=== PATIENT | female | born 1955 | race Caucasian/White ===

== ENCOUNTER 2016-05-31 11:57 | Outpatient (CLI) | payer MEDICAID | END 2016-05-31 11:58 | disposition home or self-care (01) | DX: M25.531 Pain in right wrist (principal); M19.031 Primary osteoarthritis, right wrist ==

== ENCOUNTER 2016-09-30 10:23 | Outpatient (CLI) | payer MEDICAID | END 2016-09-30 10:24 | disposition home or self-care (01) | DX: I10 Essential (primary) hypertension (principal); F32.9 Major depressive disorder, single episode, unspecified ==

== ENCOUNTER 2016-10-16 10:55 | Outpatient (CLI) | payer MEDICAID ==
--- NOTE | 2016-10-17 08:06 | MRI Report ---
EXAM: RIGHT WRIST MRI WITHOUT CONTRAST EXAM DATE: 10/16/2016 11:40 AM. CLINICAL HISTORY: Right dorsal wrist pain in April 2016. Pain radiating up and down the forearm. COMPARISON: None. TECHNIQUE: Multiplanar, multisequence T1-weighted and fluid-sensitive sequences of the wrist without contrast. Other: None. FINDINGS: Bones: Moderate osteophyte formation and some periarticular marrow edema and cyst formation is in the first carpometacarpal joint. There is moderate joint space narrowing and periarticular marrow edema in the triscaphe joint. The lunate has some nonspecific edema within the volar portion. There is some nonspecific edema within the capitate as well. No fractures. Cartilage: Moderate cartilage loss in the first carpometacarpal joint and severe cartilage loss is in the triscaphe joint. The triangular fibrocartilage complex is unremarkable. Ligaments: The scapholunate and lunotriquetral ligaments are intact. The visualized other intrinsic, extrinsic and collateral ligaments are unremarkable. Tendons: The extensor carpi ulnaris tendon has a longitudinal split tear near the ulnar styloid (seri es 501, image 17). Fluid is in the first extensor compartment. The abductor pollicis longus tendon is severely thickened with multifocal longitudinal tearing. The other visualized flexor and extensor te ndons are unremarkable. Musculature: No edema or fatty atrophy. Other: The contents of the carpal tunnel, including the median nerve, are unremarkable. Guyon' s silvino l is unremarkable. No ganglion cysts. A mild effusion is in the distal radial ulnar joint. The subcut aneous tissues are unremarkable. IMPRESSION: 1. 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 2. Longitudinal split tear of the extensor carpi ulnaris tendon. 3. DeQuervain's tenosynovitis with severe tendinosis and tearing of the abductor pollicis longus tend on. [facility] MUSCULOSKELETAL RADIOLOGY SECTION Referring Provider Line: [phone] SITE ID: [id number]
== END 2016-10-16 10:56 | disposition home or self-care (01) ==
LOC: DI 10:55
PROVIDERS: ATTEND Orthopaedic Surgery
DX: M19.031 Primary osteoarthritis, right wrist (principal); S66.911A Strain of unspecified muscle, fascia and tendon at wrist and hand level, right hand, initial encounter; S56.311A Strain of extensor or abductor muscles, fascia and tendons of right thumb at forearm level, initial encounter; M65.4 Radial styloid tenosynovitis [de Quervain]

== ENCOUNTER 2016-12-24 10:31 | Day surgery (SDC) | payer MEDICAID ==
[2016-12-24] MEDS ORDERED: LACTATED RINGERS 1,000 ML IV ONE (11:10)
[2016-12-24] MEDS ORDERED: fentaNYL 100 MCG/2 ML VIAL IVP ONE (11:57)
[2016-12-24] MEDS ORDERED: MIDAZOLAM 2 MG/2 ML VIAL IVP ONE (11:57)
[2016-12-24] MEDS ORDERED: ONDANSETRON 4 MG/2 ML VIAL ONE (12:37)
[2016-12-24 13:28] VITALS: BP 132/77
== END 2016-12-24 10:32 | disposition home or self-care (01) ==
LOC: SDS 10:31
PROVIDERS: ATTEND Surgery
PROC: 0DJD8ZZ Inspection of Lower Intestinal Tract, Via Natural or Artificial Opening Endoscopic (ICD-10-PCS; principal; 2016-12-24 11:30)
DX: Z86.010 Personal history of colon polyps (principal); K57.30 Diverticulosis of large intestine without perforation or abscess without bleeding; I10 Essential (primary) hypertension; F41.9 Anxiety disorder, unspecified; K21.9 Gastro-esophageal reflux disease without esophagitis; Z80.3 Family history of malignant neoplasm of breast
CPT/HCPCS: 45378; J7120

== ENCOUNTER 2017-02-18 09:44 | Outpatient (CLI) | payer MEDICAID ==
--- NOTE | 2017-02-19 17:03 | Mammography Report ---
DIGITAL SCREENING MAMMOGRAM: 02/18/2017 CLINICAL INDICATION: A 61-year-old, for screening. COMPARISON: 07/2015, 05/2013, 01/2012, 12/2010, 10/2009. TECHNIQUE: Routine CC and MLO projections were obtained of the breasts. FINDINGS: The breasts demonstrate heterogeneously dense fibroglandular parenchyma bilaterally. In th e right lower inner anterior breast, there is a possible obscured nodule. Further evaluation with spo t compression views and possible ultrasound is recommended. No mammographically suspicious findings a re appreciated in the left breast. IMPRESSION: INCOMPLETE EXAMINATION. RECOMMENDATION: ADDITIONAL EVALUATION OF THE RIGHT BREAST ABOVE. BIRADS CATEGORY 0-INCOMPLETE. STANDARD QUALIFYING STATEMENTS 1. This examination was reviewed with the aid of Computer-Aided Detection (CAD). 2. A negative or benign imaging report should not delay biopsy if clinically suspicious findings are present. Consider surgical consultation if warranted. More than 5% of cancers are not identified by i maging. 3. Dense breasts may obscure an underlying neoplasm. JOB #: [id number] EXT JOB #:[id number]
== END 2017-02-18 09:45 | disposition home or self-care (01) ==
LOC: DI 09:44
PROVIDERS: ATTEND Nurse Practitioner Family
DX: Z12.31 Encounter for screening mammogram for malignant neoplasm of breast (principal); R92.8 Other abnormal and inconclusive findings on diagnostic imaging of breast
CPT/HCPCS: 77067

== ENCOUNTER 2017-02-25 12:59 | Outpatient (CLI) | payer MEDICAID ==
--- NOTE | 2017-02-25 17:42 | Mammography Report ---
DIGITAL DIAGNOSTIC RIGHT MAMMOGRAM: 02/25/2017 CLINICAL INDICATION: Possible nodule on screening. COMPARISON: 02/18/2017, 07/31/2015, 06/16/2013, 02/18/2012, 01/24/2011, 01/17/2011, 11/14/2009. TECHNIQUE: Right true lateral and spot compression views. FINDINGS: The right breast again demonstrates heterogeneously dense fibroglandular parenchyma. The density in question in the right retroareolar breast dissipates on additional compression. No underl vicky mass lesion or architectural distortion is identified. IMPRESSION: NEGATIVE EXAMINATION. RECOMMENDATION: Routine annual screening unless otherwise clinically indicated. BI-RADS category 1, negative. STANDARD QUALIFYING STATEMENTS 1. This examination was reviewed with the aid of Computer-Aided Detection (CAD). 2. A negative or benign imaging report should not delay biopsy if clinically suspicious findings are present. Consider surgical consultation if warranted. More than 5% of cancers are not identified by i maging. 3. Dense breasts may obscure an underlying neoplasm. JOB #: [id number] EXT JOB #:[id number]
== END 2017-02-25 13:00 | disposition home or self-care (01) ==
LOC: DI 12:59
PROVIDERS: ATTEND Family Medicine
DX: R92.8 Other abnormal and inconclusive findings on diagnostic imaging of breast (principal)

== ENCOUNTER 2017-03-18 07:23 | Day surgery (SDC) | payer MEDICAID ==
[2017-03-18] MEDS ORDERED: ceFAZolin 2 GM/50 ML 2 GM/50 ML BAG IV ONE (07:35)
[2017-03-18] MEDS ORDERED: LACTATED RINGERS 1,000 ML IV ONE (07:53)
[2017-03-18] MEDS ORDERED: BUPIVACAINE 0.25% PF 30 ML VIAL SUBQ ONE ×2 (08:28)
[2017-03-18] MEDS ORDERED: LIDOCAINE 1%-EPI 1:100000 20 ML MDV SUBQ ONE ×2 (08:28)
[2017-03-18] MEDS ORDERED: MIDAZOLAM 2 MG/2 ML VIAL IVP ONE (08:35)
[2017-03-18] MEDS ORDERED: LIDOCAINE-MPF 2% 5 ML VIAL IM ONE (08:35)
[2017-03-18] MEDS ORDERED: PROPOFOL 200 MG/20 ML VIAL IVP ONE (08:35)
[2017-03-18] MEDS ORDERED: fentaNYL 100 MCG/2 ML VIAL IVP ONE (08:35)
[2017-03-18] MEDS ORDERED: HYDROcod/ACETAM 5/325 MG TABLET ONE (09:01)
[2017-03-18 09:19] VITALS: BP 148/85
--- NOTE | 2017-03-18 09:50 | OPERATIVE REPORT ---
DATE OF SURGERY: 03/18/2017 00:00:00 PREOPERATIVE DIAGNOSIS: Right de Quervain tenosynovitis. POSTOPERATIVE DIAGNOSIS: Right de Quervain tenosynovitis. NAME OF PROCEDURE: Surgical release of the right wrist first extensor compartment. SURGEON: Carla Barber MD. ANESTHESIA: Local and MAC. INDICATIONS FOR SURGERY: The patient is a 61-year-old female with chronic radial right wrist pain who has had conservative treatment with splinting and injections with minimal relief. She now is prepare d for first extensor release having failed nonoperative treatment. FINDINGS AT SURGERY: The patient's first extensor compartment showed multiple slips of tendon, none o f them in separate compartments. There was mild fluid accumulation, but no redness and no abnormality in the tendons themselves. DESCRIPTION OF OPERATIVE PROCEDURE: The patient was taken to the operating room, was given sedation a nesthetic, after which a surgical out and sterile prep and drape were accomplished. The patient's wri st was marked for a transverse incision in the Jackeline's lines transversely across the wrist. A 1.5 in ch incision was made through the skin only. The area had been infiltrated with 0.25% Marcaine with ep inephrine and 1% lidocaine. An Esmarch was used as tourniquet on the upper forearm. An incision was m sita. Dissection was spread down to the first extensor compartment, which was isolated and then surgic ally released. The tendons were each individually inspected and there was no abnormality in the tendo ns. The area was flushed and irrigated, and the closure was with 3-0 Vicryl subcutaneous and 3-0 Sac cryl with a running stitch in the skin. Steri-Strips were applied and a sterile dressing was applied with a thumb splint. The patient was taken to the recovery room in stable condition. ESTIMATED BLOOD LOSS: Minimal. COMPLICATIONS: None. SPONGE AND NEEDLE COUNTS: Correct. JOB #: [id number] EXT JOB #:[id number]
== END 2017-03-18 07:24 | disposition home or self-care (01) ==
LOC: SDS 07:23
PROVIDERS: ATTEND Orthopaedic Surgery
PROC: 0LN50ZZ Release Right Lower Arm and Wrist Tendon, Open Approach (ICD-10-PCS; principal; 2017-03-18 08:15)
DX: M65.4 Radial styloid tenosynovitis [de Quervain] (principal); I10 Essential (primary) hypertension; E78.5 Hyperlipidemia, unspecified; F32.9 Major depressive disorder, single episode, unspecified; F41.9 Anxiety disorder, unspecified
CPT/HCPCS: 25000; A9270; J0690; J7120

== ENCOUNTER 2018-04-09 09:13 | Outpatient (CLI) | payer MEDICAID ==
[2018-04-09 18:29] LABS: BASOPHILS # (AUTO) 0.1 10^3/uL (0.0-0.1); BASOPHILS % (AUTO) 0.8 %; EOSINOPHILS # (AUTO) 0.1 10^3/uL (0.0-0.7); EOSINOPHILS % (AUTO) 0.9 %; HGB - HEMOGLOBIN 14.7 g/dL (12.0-16.0); LYMPHOCYTES # (AUTO) 1.6 10^3/uL (1.5-3.5); LYMPHOCYTES % (AUTO) 21.9 %; MEAN CORPUSCULAR HEMOGLOBIN 29.4 pg (27.0-31.0); MEAN CORPUSCULAR VOLUME 92.1 fL (81.0-99.0); MEAN PLATELET VOLUME 9.5 fL (7.9-10.8); MONOCYTES # (AUTO) 0.4 10^3/uL (0.0-1.0); MONOCYTES % (AUTO) 5.9 %; NEUTROPHILS # (AUTO) 5.3 10^3/uL (1.5-6.6); NEUTROPHILS % (AUTO) 70.5 %; PLT - PLATELET COUNT 268 10^3/uL (130-450); RED BLOOD COUNT 5.01 10^6/uL (4.20-5.40); RED CELL DISTRIBUTION WIDTH 13.6 % (12.0-15.0); WHITE BLOOD COUNT 7.5 x10^3/uL (4.8-10.8)
[2018-04-09 19:00] LABS: ALBUMIN/GLOBULIN RATIO 1.4 (1.0-2.2); ALKALINE PHOSPHATASE 91 IU/L (42-121); ALT ALANINE AMINOTRANSFERASE 16 IU/L (10-60); AST ASPARTATE AMINOTRANSFERASE 17 IU/L (10-42); BILIRUBIN,TOTAL 0.9 mg/dL (0.2-1.0); BUN - BLOOD UREA NITROGEN 14 mg/dL (6-20); CALCIUM 8.7 mg/dL (8.5-10.3); CARBON DIOXIDE - CO2 25 mmol/L (21-32); CHLORIDE 106 mmol/L (101-111); CHOL/HDL RATIO 2.8 (<4.4); CHOLESTEROL 219 mg/dL; CREATININE 0.5 mg/dL (0.4-1.0); GFR - MDRD 126 (>89); GLUCOSE 98 mg/dL (70-100); HDL CHOLESTEROL 77 mg/dL; LDL CHOLESTEROL,CALCULATED 118 mg/dL; LDL/HDL RATIO 1.5 (<4.4); SODIUM 139 mmol/L (135-145); TOTAL PROTEIN 6.9 g/dL (6.7-8.2); VLDL CHOLESTEROL 24 mg/dL
== END 2018-04-09 09:14 | disposition home or self-care (01) ==
LOC: LAB.F 09:13
PROVIDERS: ATTEND Nurse Practitioner Family
DX: I10 Essential (primary) hypertension (principal); E78.5 Hyperlipidemia, unspecified; F32.9 Major depressive disorder, single episode, unspecified
CPT/HCPCS: 36415; 80053; 80061; 83721; 84443; 85025

== ENCOUNTER 2018-04-30 13:16 | Emergency (ER) | payer MEDICAID ==
[2018-04-30] MEDS ORDERED: ACETAMINOPHEN 1,000 MG/100 ML 100 ML IV STA (13:36)
[2018-04-30] MEDS ORDERED: SODIUM CHLORIDE 0.9% 1,000 ML IV ONE (13:37)
[2018-04-30 13:52] LABS: BASOPHILS % (AUTO) 0.4 %; EOSINOPHILS # (AUTO) 0.1 10^3/uL (0.0-0.7); EOSINOPHILS % (AUTO) 1.2 %; HGB - HEMOGLOBIN 15.7 g/dL (12.0-16.0); LYMPHOCYTES # (AUTO) 1.2 10^3/uL (1.5-3.5); LYMPHOCYTES % (AUTO) 14.5 %; MEAN CORPUSCULAR HEMOGLOBIN 30.1 pg (27.0-31.0); MEAN CORPUSCULAR HGB CONC 34.1 g/dL (32.0-36.0); MEAN CORPUSCULAR VOLUME 88.3 fL (81.0-99.0); MEAN PLATELET VOLUME 8.2 fL (7.9-10.8); MONOCYTES # (AUTO) 0.6 10^3/uL (0.0-1.0); MONOCYTES % (AUTO) 7.2 %; NEUTROPHILS # (AUTO) 6.1 10^3/uL (1.5-6.6); NEUTROPHILS % (AUTO) 76.7 %; PLT - PLATELET COUNT 272 10^3/uL (130-450); RED BLOOD COUNT 5.21 10^6/uL (4.20-5.40); RED CELL DISTRIBUTION WIDTH 13.3 % (12.0-15.0); WHITE BLOOD COUNT 7.9 x10^3/uL (4.8-10.8)
--- NOTE | 2018-04-30 13:52 | ED Physician Documentation ---
History of Present Illness - Stated complaint Stated Complaint: ABD PX/DIARRHEA - Chief complaint Chief Complaint: Abd Pain - Additonal information Additional information: hx from pt 62 female to ED with nausea diarrhea s blood and right abd pain X 1.5 days no travel no bad food no sick people contacts but has been caring for sick cows no blood in stool no fever Review of Systems Constitutional: denies: Fever, Chills Throat: denies: Sore throat Cardiac: denies: Chest pain / pressure Respiratory: denies: Dyspnea GI: reports: Abdominal Pain, Nausea, Diarrhea. denies: Bloody / black stool : denies: Now EGA Endocrine: denies: Easy bruising / bleeding Immunocompromised: denies: Immunocompromised PD PAST MEDICAL HISTORY - Past Medical History Past Medical History: Yes Cardiovascular: Hypertension, High cholesterol Respiratory: None Endocrine/Autoimmune: None GI: GERD : None HEENT: Chronic vision loss Psych: Depression, Anxiety, Panic attacks, Claustrophobia Musculoskeletal: Other Derm: None - Past Surgical History General: Colonoscopy HEENT: Tonsil/Adenoidectomy - Present Medications Home Medications: Ambulatory Orders Medication Instructions Recorded Confirmed Butalbital/Aspirin/Caffeine 1 tab ORAL Q4H PRN MDD 6 12/24/16 03/18/17 [Fiorinal 50-325-40 mg Capsule] raNITIdine [Zantac] 150 mg ORAL DAILY 12/24/16 03/18/17 hydrOXYzine HCl [Hydroxyzine HCl] 50 mg PO DAILY PM 03/13/17 03/18/17 hydrOXYzine HCl [Hydroxyzine HCl] 50 mg PO Q6HR PRN 03/13/17 03/13/17 Acyclovir 400 mg PO 04/30/18 04/30/18 Amox/Clav 875/125 [Augmentin] 1 each PO Q12H #14 tablet 04/30/18 Dicyclomine [Bentyl] 10 mg PO Q8H PRN #20 capsule 04/30/18 Lisinopril 10 mg 04/30/18 Ondansetron Odt [Zofran] 4 mg TL Q6H PRN #10 tablet 04/30/18 Saccharomyces Boulardii [Florastor] 500 mg PO BID #40 capsule 04/30/18 - Allergies Allergies/Adverse Reactions: Allergies Allergy/AdvReac Type Severity Reaction Status Date / Time citalopram hydrobromide * Allergy Severe Hallucinati Verified 04/30/18 13:21 [From Celexa] ons losartan Allergy Severe Dizziness Verified 04/30/18 13:21 sumatriptan Allergy Severe Dizziness Verified 04/30/18 13:21 venlafaxine Allergy Severe Dizziness Verified 04/30/18 13:21 bacitracin Allergy Intermediate Itching Verified 04/30/18 13:21 [From Neosporin (izp-csc-[id number])] bacitracin zinc * Allergy Intermediate Itching Verified 04/30/18 13:21 [From Neosporin ([id number]-dls-[id number])] erythromycin base Allergy Intermediate Itching Verified 04/30/18 13:21 neomycin sulfate * Allergy Intermediate Itching Verified 04/30/18 13:21 [From Neosporin ([id number]-[id number])] polymyxin B Allergy Intermediate Itching Verified 04/30/18 13:21 [From Neosporin ([id number]-ndg-[id number])] - Social History Does the pt smoke?: No Smoking Status: Never smoker Does the pt drink ETOH?: Yes Does the pt have substance abuse?: No - Immunizations Immunizations are current?: Yes PD ED PE NORMAL - Vitals Vital signs reviewed: Yes - Cardiac Cardiac: RRR - Respiratory Respiratory: No respiratory distress - Abdomen Abdomen: Soft, Other (TTP RLQ with some vol guarding, no hernia, no pulsatile mass) - Derm Derm: Normal color - Neuro Neuro: Alert and oriented X 3 Results - Vitals Vitals: Vital Signs - 24 hr 04/30/18 04/30/18 04/30/18 13:17 15:49 16:23 Temperature 36.2 C L Heart Rate 100 77 74 Respiratory 18 16 19 Rate Blood Pressure 155/105 H 133/82 H 131/69 H O2 Saturation 98 97 94 Oxygen O2 Source Room air - Labs Labs: Microbiology 04/30/18 14:00 Campylobacter Antigen Assay - Final Stool Laboratory Tests 04/30/18 04/30/18 04/30/18 13:42 13:42 15:00 WBC 7.9 RBC 5.21 Hgb 15.7 Hct 46.0 MCV 88.3 MCH 30.1 MCHC 34.1 RDW 13.3 Plt Count 272 MPV 8.2 Neut # (Auto) 6.1 Lymph # (Auto) 1.2 L [place] # (Auto) 0.6 Eos # (Auto) 0.1 Baso # (Auto) 0.0 Absolute Nucleated RBC 0.00 Nucleated RBC % 0.0 Sodium 138 Potassium 3.4 L Chloride 104 Carbon Dioxide 24 Anion Gap 10.0 BUN 15 Creatinine 0.7 Estimated GFR (MDRD) 85 L Glucose 119 H Calcium 8.6 Total Bilirubin 0.7 AST 24 ALT 18 Alkaline Phosphatase 111 Total Protein 7.1 Albumin 3.9 Globulin 3.2 Albumin/Globulin Ratio 1.2 Lipase 25 Urine Color YELLOW Urine Clarity CLEAR Urine pH 6.0 Ur Specific [place] <=1.005 Urine Protein NEGATIVE Urine Glucose (UA) NEGATIVE Urine Ketones NEGATIVE Urine Occult Blood SMALL H Urine Nitrite NEGATIVE Urine Bilirubin NEGATIVE Urine Urobilinogen 0.2 (NORMAL) Ur Leukocyte Esterase NEGATIVE Urine RBC 0-5 Urine WBC 0-3 Ur Squamous Epith Cells RARE Squamous Urine Bacteria None Seen Ur Microscopic Review INDICATED Urine Culture Comments NOT INDICATED - Rads (name of study) CT AP Radiology: See rad report (wall thickening ascending colon and transverse colon with pericolonic stranding and edema, not typical for diverticulitis, could be infectious or inflammatory, nl appendix, indeterm 2.8 cm L adrenal mass) PD MEDICAL DECISION MAKING - ED course ED course: acute illness CT shows colitis doubt ischemic given large section of colon involved, pain not out or proportion to exam, no afib doubt inflammatory bowel dz woudl first present at age 62 so likely infectious gave unasyn IVF and ofirmev and bentyl if able to tolerate PO fluids will dc on ab with close follow up Departure - Departure Disposition: 01 Home, Self Care Clinical Impression: Colitis Condition: Good Instructions: ED Gastroenteritis Bacterial Follow-Up: Mirela Pinedo ARNP [Primary Care Provider] - Prescriptions: Amox/Clav 875/125 [Augmentin] 1 each PO Q12H #14 tablet Dicyclomine [Bentyl] 10 mg PO Q8H PRN #20 capsule PRN Reason: Stomach cramps Ondansetron Odt [Zofran] 4 mg TL Q6H PRN #10 tablet PRN Reason: Nausea / Vomiting Saccharomyces Boulardii [Florastor] 500 mg PO BID #40 capsule Comments: The CT scan showed the inflamed colon. This is likely due to an infection I have prescribed an antibiotic called augmentin. You can take bentyl for the cramps and pain. A probiotic to help maintain normal healthy gut bacteria. And zofran as needed for vomiting Drink plenty of fluids to replace losses in the diarrhea Recommend clear liquid diet today and tomorrow then advance to rice toast bananas etc on Friday Follow up with your PMD for a recheck Friday Return to the ER of worse in any way The CT also showed a mass on your left adrenal gland - this would not be related to your right sided pain today but needs follow up and further evaluation with your PMD. This is likely a benign adenomas but tests should be run to be sure it s not a pheochromocytoma and sometimes biopsy is recommended I would also suggest getting a colonoscopy after the acute illness has resolved Forms: Activity restrictions Discharge Date/Time: 04/30/18 17:27
[2018-04-30 14:09] LABS: ALBUMIN 3.9 g/dL (3.2-5.5); ALBUMIN/GLOBULIN RATIO 1.2 (1.0-2.2); BILIRUBIN,TOTAL 0.7 mg/dL (0.2-1.0); CALCIUM 8.6 mg/dL (8.5-10.3); CREATININE 0.7 mg/dL (0.4-1.0); TOTAL PROTEIN 7.1 g/dL (6.7-8.2)
[2018-04-30] MEDS ORDERED: IOVERSOL 320 100 ML VIAL IVP ONE ×2 (14:24→14:33)
--- NOTE | 2018-04-30 14:46 | CT Report ---
Reason: rlq pain and diarrhea Procedure Date: 04/30/2018 Accession Number: [id number] / [id number] Procedure: CT - Abdomen/Pelvis W/ CPT Code: FULL RESULT: EXAM: CT ABDOMEN AND PELVIS EXAM DATE: 04/30/2018 02:35 PM. CLINICAL HISTORY: Rlq pain and diarrhea. COMPARISONS: None. TECHNIQUE: Routine helical CT imaging was performed through the abdomen and pelvis. IV contrast: OPTIRAY 320 90mL. Enteric contrast: No. Reconstructions: Coronal and sagittal. In accordance with CT protocol optimization, one or more of the following dose reduction techniques were utilized for this exam: automated exposure control, adjustment of mA and/or KV based on patient size, or use of iterative reconstructive technique. FINDINGS: Lung Bases: Unremarkable. Liver: Subcentimeter densities too small to characterize Gallbladder/Bile Ducts: Unremarkable. Spleen: Normal. Pancreas: Normal. Adrenal Glands: Right adrenal unremarkable. Left adrenal 2.8 cm indeterminate mass Kidneys: Normal. No masses or hydronephrosis. Peritoneal Cavity/Bowel: Wall thickening in portions of the ascending colon, most of the transverse colon. Pericolonic stranding. There are a few diverticula in the colon but most of the diverticula are in the sigmoid colon The appendix is well visualized and normal. Pelvic Organs: Normal. The bladder and visualized pelvic organs are within normal limits. Vasculature: No aneurysms or other significant abnormality. Bones: Bone islands in the acetabulum Other: None. IMPRESSION: 1. Wall thickening in portions of the ascending colon and most of the transverse colon with pericolonic stranding and edema. There are a few diverticula in this region but not typical appearance for diverticulitis. This could be infectious, inflammatory, inflammatory bowel disease. 2. Normal appendix. 3. Indeterminate left adrenal mass 2.8 cm RAD[facility]
[2018-04-30 15:11] LABS: BILIRUBIN,URINE NEGATIVE (NEGATIVE); GLUCOSE, URINE (UA) NEGATIVE (NEGATIVE); KETONES,URINE (UA) NEGATIVE (NEGATIVE); LEUKOCYTE ESTERASE, URINE NEGATIVE (NEGATIVE); NITRITE,URINE NEGATIVE (NEGATIVE); OCCULT BLOOD,URINE SMALL (NEGATIVE); PROTEIN,URINE NEGATIVE (NEGATIVE); UROBILINOGEN,URINE 0.2 (NORMAL) E.U./dL (NORMAL)
[2018-04-30 15:14] LABS: CLARITY,URINE CLEAR (CLEAR)
[2018-04-30 15:43] LABS: BACTERIA,URINE None Seen /HPF (None Seen); RBC,URINE 0-5 /HPF (0-5); SQUAMOUS EPITHELIAL CELL,UR RARE Squamous (<= Few)
[2018-04-30] MEDS ORDERED: DICYCLOMINE 10 MG CAPSULE PO STA (16:09)
[2018-04-30] MEDS ORDERED: AMPICILLIN/SULBACTAM 3 GM in SODIUM CHLORIDE 0.9% MINIBAG 100 ML IV STA (16:09)
[2018-04-30 16:24] VITALS: BP 131/69
== END 2018-04-30 17:27 | disposition home or self-care (01) ==
LOC: ED 13:16
DX: K52.9 Noninfective gastroenteritis and colitis, unspecified (principal); I10 Essential (primary) hypertension; E78.00 Pure hypercholesterolemia, unspecified
CPT/HCPCS: 36415; 74177; 80053; 81001; 83690; 85025; 87045; 87046; 96361; 96365; 96375; 99283; A9270; J0131; Q9967; 81003; 87086

== ENCOUNTER 2018-05-02 11:01 | Emergency (ER) | payer MEDICAID ==
[2018-05-02] MEDS ORDERED: ONDANSETRON 4 MG/2 ML VIAL IVP STA (12:15)
[2018-05-02] MEDS ORDERED: SODIUM CHLORIDE 0.9% 1,000 ML IV STA (12:15)
[2018-05-02 12:44] LABS: BASOPHILS % (AUTO) 0.4 %; EOSINOPHILS % (AUTO) 0.4 %; HGB - HEMOGLOBIN 16.7 g/dL (12.0-16.0); LYMPHOCYTES % (AUTO) 10.9 %; MEAN CORPUSCULAR HGB CONC 34.8 g/dL (32.0-36.0); MEAN CORPUSCULAR VOLUME 86.3 fL (81.0-99.0); MEAN PLATELET VOLUME 8.3 fL (7.9-10.8); MONOCYTES # (AUTO) 0.7 10^3/uL (0.0-1.0); MONOCYTES % (AUTO) 7.4 %; NEUTROPHILS # (AUTO) 7.6 10^3/uL (1.5-6.6); NEUTROPHILS % (AUTO) 80.9 %; PLT - PLATELET COUNT 252 10^3/uL (130-450); RED BLOOD COUNT 5.58 10^6/uL (4.20-5.40); RED CELL DISTRIBUTION WIDTH 13.2 % (12.0-15.0); WHITE BLOOD COUNT 9.4 x10^3/uL (4.8-10.8)
[2018-05-02 12:53] LABS: ALBUMIN 4.4 g/dL (3.2-5.5); ALBUMIN/GLOBULIN RATIO 1.3 (1.0-2.2); BILIRUBIN,TOTAL 0.8 mg/dL (0.2-1.0); CREATININE 1.6 mg/dL (0.4-1.0); TOTAL PROTEIN 7.9 g/dL (6.7-8.2)
[2018-05-02] MEDS ORDERED: SODIUM CHLORIDE 0.9% 1,000 ML IV ONE (13:10)
--- NOTE | 2018-05-02 13:13 | ED Physician Documentation ---
History of Present Illness - Stated complaint Stated Complaint: N/V/D - Chief complaint Chief Complaint: Abd Pain - History obtained from History obtained from: Patient, Friend - History of Present Illness Timing: How many days ago (several) Pain level max: 6 Pain level now: 2 - Additonal information Additional information: Patient is a 62-year-old female who was seen here recently her pain is nearly resolved but the diarrhea has increased and had vomiting this morning. Denies any recent travel. Is not been on any antibiotics other than the Augmentin. No fevers. Nothing makes the diarrhea better. The antibiotics seem to be making it worse. Her stool culture from 2 days ago is negative. C. difficile was not tested. Review of Systems Ten Systems: 10 systems reviewed and negative Constitutional: denies: Fever, Chills Ears: denies: Ear pain Nose: denies: Rhinorrhea / runny nose, Congestion Throat: denies: Sore throat Cardiac: denies: Chest pain / pressure Respiratory: denies: Cough GI: denies: Nausea, Vomiting, Diarrhea Skin: denies: Rash Musculoskeletal: denies: Neck pain, Back pain Neurologic: denies: Headache PD PAST MEDICAL HISTORY - Past Medical History Cardiovascular: Hypertension, High cholesterol Respiratory: None Endocrine/Autoimmune: None GI: GERD : None HEENT: Chronic vision loss Psych: Depression, Anxiety, Panic attacks, Claustrophobia Musculoskeletal: Other Derm: None - Past Surgical History General: Colonoscopy HEENT: Tonsil/Adenoidectomy - Present Medications Home Medications: Ambulatory Orders Medication Instructions Recorded Confirmed Butalbital/Aspirin/Caffeine 1 tab ORAL Q4H PRN MDD 6 12/24/16 03/18/17 [Fiorinal 50-325-40 mg Capsule] raNITIdine [Zantac] 150 mg ORAL DAILY 12/24/16 03/18/17 hydrOXYzine HCl [Hydroxyzine HCl] 50 mg PO DAILY PM 03/13/17 03/18/17 Acyclovir 400 mg PO 04/30/18 04/30/18 Amox/Clav 875/125 [Augmentin] 1 each PO Q12H #14 tablet 04/30/18 Dicyclomine [Bentyl] 10 mg PO Q8H PRN #20 capsule 04/30/18 Lisinopril 10 mg 04/30/18 Ondansetron Odt [Zofran] 4 mg TL Q6H PRN #10 tablet 04/30/18 Saccharomyces Boulardii [Florastor] 500 mg PO BID #40 capsule 04/30/18 Ondansetron Odt [Zofran] 4 mg TL Q6H PRN #10 tablet 05/02/18 Sulfamethox/Trimeth 800/160 1 each PO BID #14 tablet 05/02/18 [Bactrim Ds 800/160] - Allergies Allergies/Adverse Reactions: Allergies Allergy/AdvReac Type Severity Reaction Status Date / Time citalopram hydrobromide * Allergy Severe Hallucinati Verified 05/02/18 11:11 [From Celexa] ons losartan Allergy Severe Dizziness Verified 05/02/18 11:11 sumatriptan Allergy Severe Dizziness Verified 05/02/18 11:11 venlafaxine Allergy Severe Dizziness Verified 05/02/18 11:11 bacitracin Allergy Intermediate Itching Verified 05/02/18 11:11 [From Neosporin (gkk-zub-emxgo)] bacitracin zinc * Allergy Intermediate Itching Verified 05/02/18 11:11 [From Neosporin (bsu-pcz-runks)] erythromycin base Allergy Intermediate Itching Verified 05/02/18 11:11 neomycin sulfate * Allergy Intermediate Itching Verified 05/02/18 11:11 [From Neosporin (exx-prk-ljxro)] polymyxin B Allergy Intermediate Itching Verified 05/02/18 11:11 [From Neosporin (hxh-dbg-uczpi)] - Social History Does the pt smoke?: No Smoking Status: Never smoker Does the pt drink ETOH?: Yes Does the pt have substance abuse?: No - Immunizations Immunizations are current?: Yes PD ED PE NORMAL - Vitals Vital signs reviewed: Yes - General General: Alert and oriented X 3, No acute distress - HEENT HEENT: Moist mucous membranes - Neck Neck: Supple, no meningeal sign - Cardiac Cardiac: RRR, Strong equal pulses - Respiratory Respiratory: No respiratory distress, Clear bilaterally - Abdomen Abdomen: Soft, Non tender, Non distended - Derm Derm: Warm and dry, No rash - Extremities Extremities: No edema - Neuro Neuro: Alert and oriented X 3 - Psych Psych: Normal mood, Normal affect Results - Vitals Vitals: Vital Signs - 24 hr 05/02/18 05/02/18 05/02/18 11:07 14:34 15:26 Temperature 36.8 C 37.2 C 36.7 C Heart Rate 110 H 88 97 Respiratory 16 20 12 Rate Blood Pressure 104/76 111/74 116/87 H O2 Saturation 96 98 98 Oxygen O2 Source Room air - Labs Labs: Microbiology 05/02/18 13:20 Clostridium difficile (PCR) - Final Stool Laboratory Tests 05/02/18 05/02/18 05/02/18 12:28 12:28 13:18 WBC 9.4 RBC 5.58 H Hgb 16.7 H Hct 48.1 H MCV 86.3 MCH 30.0 MCHC 34.8 RDW 13.2 Plt Count 252 MPV 8.3 Neut # (Auto) 7.6 H Lymph # (Auto) 1.0 L [place] # (Auto) 0.7 Eos # (Auto) 0.0 Baso # (Auto) 0.0 Absolute Nucleated RBC 0.01 Nucleated RBC % 0.1 Sodium 130 L Potassium 3.1 L Chloride 96 L Carbon Dioxide 22 Anion Gap 12.0 BUN 15 Creatinine 1.6 H Estimated GFR (MDRD) 33 L Glucose 118 H Calcium 9.0 Total Bilirubin 0.8 AST 34 ALT 23 Alkaline Phosphatase 107 Total Protein 7.9 Albumin 4.4 Globulin 3.5 Albumin/Globulin Ratio 1.3 Lipase 26 Urine Color YELLOW Urine Clarity HAZY Urine pH 7.0 Ur Specific [place] <=1.005 Urine Protein 30 H Urine Glucose (UA) NEGATIVE Urine Ketones TRACE Urine Occult Blood MODERATE H Urine Nitrite NEGATIVE Urine Bilirubin NEGATIVE Urine Urobilinogen 0.2 (NORMAL) Ur Leukocyte Esterase NEGATIVE Urine RBC 6-10 H Urine WBC 4-5 Ur Squamous Epith Cells FEW Squamous Urine Bacteria Few Ur Microscopic Review INDICATED Urine Culture Comments NOT INDICATED PD MEDICAL DECISION MAKING - ED course Complexity details: reviewed old records, reviewed results, re-evaluated patient, considered differential, d/w patient ED course: 62 year old female with increasing diarrhea, but pain has resolved. She may be having side effects from Augmentin. will change antibiotics. Given IVF. C. diff testing is negative. She is well appearing, non toxic. Abd is soft, nt, nd on serial exam. tolerating PO without diff. Pt counseled regarding expected course and signs and symptoms for which I believe an urgent evaluation would be necessary. Pt with good understanding and agreement to plan. Departure - Departure Disposition: 01 Home, Self Care Clinical Impression: Colitis Condition: Good Instructions: ED Gastroenteritis Bacterial Follow-Up: Mirela Pinedo ARNP [Primary Care Provider] - Within 1 week Prescriptions: Ondansetron Odt [Zofran] 4 mg TL Q6H PRN #10 tablet PRN Reason: Nausea / Vomiting Sulfamethox/Trimeth 800/160 [Bactrim Ds 800/160] 1 each PO BID #14 tablet Comments: Stop the augmentin and we will change you to Bactrim. Follow-up closely with your doctor for further evaluation and care. Your C. difficile testing is negative today. Use the Zofran as needed for nausea and vomiting. Stop your lisinopril while taking the Bactrim. Discharge Date/Time: 05/02/18 15:32
[2018-05-02 13:31] LABS: BILIRUBIN,URINE NEGATIVE (NEGATIVE); GLUCOSE, URINE (UA) NEGATIVE (NEGATIVE); KETONES,URINE (UA) TRACE mg/dL (NEGATIVE); LEUKOCYTE ESTERASE, URINE NEGATIVE (NEGATIVE); NITRITE,URINE NEGATIVE (NEGATIVE); OCCULT BLOOD,URINE MODERATE (NEGATIVE); PROTEIN,URINE 30 mg/dL (NEGATIVE); UROBILINOGEN,URINE 0.2 (NORMAL) E.U./dL (NORMAL)
[2018-05-02 13:40] LABS: CLARITY,URINE HAZY (CLEAR)
[2018-05-02 13:46] LABS: BACTERIA,URINE Few /HPF (None Seen); SQUAMOUS EPITHELIAL CELL,UR FEW Squamous (<= Few)
[2018-05-02 15:26] VITALS: BP 116/87
== END 2018-05-02 15:32 | disposition home or self-care (01) ==
LOC: ED 11:01
DX: K52.9 Noninfective gastroenteritis and colitis, unspecified (principal); Z86.19 Personal history of other infectious and parasitic diseases; I10 Essential (primary) hypertension; E78.00 Pure hypercholesterolemia, unspecified
CPT/HCPCS: 36415; 80053; 81001; 81003; 83690; 85025; 87086; 87493; 96361; 96374; 99283

== ENCOUNTER 2018-05-13 09:50 | Outpatient (CLI) | payer MEDICAID ==
[2018-05-13 10:10] LABS: BASOPHILS # (AUTO) 0.1 10^3/uL (0.0-0.1); EOSINOPHILS # (AUTO) 0.1 10^3/uL (0.0-0.7); EOSINOPHILS % (AUTO) 1.2 %; HGB - HEMOGLOBIN 13.2 g/dL (12.0-16.0); LYMPHOCYTES # (AUTO) 2.2 10^3/uL (1.5-3.5); LYMPHOCYTES % (AUTO) 22.2 %; MEAN CORPUSCULAR HEMOGLOBIN 29.6 pg (27.0-31.0); MEAN CORPUSCULAR HGB CONC 33.9 g/dL (32.0-36.0); MEAN CORPUSCULAR VOLUME 87.4 fL (81.0-99.0); MEAN PLATELET VOLUME 7.4 fL (7.9-10.8); MONOCYTES # (AUTO) 0.8 10^3/uL (0.0-1.0); MONOCYTES % (AUTO) 8.5 %; NEUTROPHILS # (AUTO) 6.7 10^3/uL (1.5-6.6); NEUTROPHILS % (AUTO) 67.1 %; PLT - PLATELET COUNT 386 10^3/uL (130-450); RED BLOOD COUNT 4.46 10^6/uL (4.20-5.40); RED CELL DISTRIBUTION WIDTH 13.2 % (12.0-15.0); WHITE BLOOD COUNT 9.9 x10^3/uL (4.8-10.8)
[2018-05-13 10:20] LABS: CALCIUM 8.4 mg/dL (8.5-10.3); CREATININE 0.7 mg/dL (0.4-1.0)
== END 2018-05-13 09:51 | disposition home or self-care (01) ==
LOC: LAB 09:50
PROVIDERS: ATTEND Nurse Practitioner Family
DX: K29.70 Gastritis, unspecified, without bleeding (principal)
CPT/HCPCS: 36415; 80048; 85025

== ENCOUNTER 2018-05-13 10:22 | Outpatient (CLI) | payer MEDICAID ==
--- NOTE | 2018-05-14 08:41 | Mammography Report ---
Reason: SCREENING MAMMO Procedure Date: 05/13/2018 Accession Number: [id number] / [id number] Procedure: JOSH - Screening Mammo w/Albert CPT Code: FULL RESULT: EXAM: Screening Mammo w/Albert DATE: 05/13/2018 11:02 AM CLINICAL HISTORY: Screening. Family history breast cancer grandmother age 60s. No reported personal history of breast cancer. TECHNIQUE: Bilateral CC and MLO views were obtained. COMPARISON: 02/25/2017 through 02/18/2012 FINDINGS: The breasts demonstrate heterogeneously dense fibroglandular parenchyma bilaterally. Bilateral breasts: There are no suspicious masses, calcifications or areas of distortion. IMPRESSION: Negative examination RECOMMENDATION: Routine annual screening unless otherwise clinically indicated. BI-RADS CATEGORY 1: Negative STANDARD QUALIFYING STATEMENTS: 1. This examination was not reviewed with the aid of Computer-Aided Detection (CAD). 2. A negative or benign imaging report should not preclude biopsy if clinically suspicious findings are present. 3. Dense breasts may obscure an underlying neoplasm. 4. This examination was reviewed with the aid of 3D breast imaging (tomosynthesis).
== END 2018-05-13 10:23 | disposition home or self-care (01) ==
LOC: DI 10:22
PROVIDERS: ATTEND Nurse Practitioner Family
DX: Z12.31 Encounter for screening mammogram for malignant neoplasm of breast (principal); Z80.3 Family history of malignant neoplasm of breast
CPT/HCPCS: 77063; 77067

== ENCOUNTER 2018-12-01 07:09 | Outpatient (CLI) | payer MEDICAID | END 2018-12-01 07:10 | disposition home or self-care (01) | LOC: LAB.S 07:09 | PROVIDERS: ATTEND Physician Assistant Medical | DX: Z53.9 Procedure and treatment not carried out, unspecified reason (principal) ==

== ENCOUNTER 2018-12-01 07:51 | Outpatient (CLI) | payer MEDICAID ==
[2018-12-01 10:19] LABS: BASOPHILS % (AUTO) 0.5 %; EOSINOPHILS # (AUTO) 0.1 10^3/uL (0.0-0.7); EOSINOPHILS % (AUTO) 1.6 %; HGB - HEMOGLOBIN 13.3 g/dL (12.0-16.0); LYMPHOCYTES % (AUTO) 31.1 %; MEAN CORPUSCULAR HEMOGLOBIN 29.7 pg (27.0-31.0); MEAN CORPUSCULAR HGB CONC 32.4 g/dL (32.0-36.0); MEAN CORPUSCULAR VOLUME 91.7 fL (81.0-99.0); MEAN PLATELET VOLUME 11.1 fL (7.9-10.8); MONOCYTES # (AUTO) 0.4 10^3/uL (0.0-1.0); MONOCYTES % (AUTO) 5.4 %; NEUTROPHILS # (AUTO) 3.9 10^3/uL (1.5-6.6); NEUTROPHILS % (AUTO) 61.1 %; PLT - PLATELET COUNT 260 10^3/uL (130-450); RED BLOOD COUNT 4.48 10^6/uL (4.20-5.40); WHITE BLOOD COUNT 6.4 x10^3/uL (4.8-10.8)
[2018-12-01 10:43] LABS: ALBUMIN/GLOBULIN RATIO 1.3 (1.0-2.2); BILIRUBIN,TOTAL 0.8 mg/dL (0.2-1.0); CALCIUM 9.1 mg/dL (8.5-10.3); CREATININE 0.6 mg/dL (0.4-1.0); TOTAL PROTEIN 7.2 g/dL (6.7-8.2)
== END 2018-12-01 07:52 | disposition home or self-care (01) ==
LOC: LAB.S 07:51
PROVIDERS: ATTEND Physician Assistant Medical
DX: I10 Essential (primary) hypertension (principal); R53.83 Other fatigue; E27.8 Other specified disorders of adrenal gland
CPT/HCPCS: 36415; 80053; 81599; 84443; 85025

== ENCOUNTER 2018-12-03 06:41 | Outpatient (CLI) | payer MEDICAID ==
--- NOTE | 2018-12-03 13:26 | Ultrasound Report ---
Reason: ADRENAL MASS,LEFT Procedure Date: 12/03/2018 Accession Number: [id number] / [id number] Procedure: US - Retroperitoneal CPT Code: FULL RESULT: EXAM: RENAL ULTRASOUND EXAM DATE: 12/03/2018 08:12 AM. CLINICAL HISTORY: ADRENAL MASS,LEFT. COMPARISON: ABDOMEN/PELVIS W/ 04/30/2018 2:18 PM. TECHNIQUE: Real-time scanning was performed with static images obtained. FINDINGS: Right Kidney: 10.9 cm. Normal echotexture with no stones, contour-deforming masses, or hydronephrosis. Left Kidney: 10.4 cm. Normal echotexture with no stones, contour-deforming masses, or hydronephrosis. Bladder: Bilateral jets seen. The prevoid bladder volume was 217 cc. The postvoid bladder volume was 60 cc. Other: Soft tissue density just medial to the left kidney measuring approximately 2.6 x 2.6 x 2.1 cm which correlates with the adrenal mass seen on the prior abdominal CT dated 04/30/2018. IMPRESSION: 1. No hydronephrosis or renal calculus. 2. Borderline abnormal post-bladder void residual. 3. Partially visualized left adrenal mass seen to better advantage on the prior abdominal CT dated 04/30/2018. [facility]
== END 2018-12-03 06:42 | disposition home or self-care (01) ==
LOC: DI 06:41
PROVIDERS: ATTEND Physician Assistant Medical
DX: E27.8 Other specified disorders of adrenal gland (principal)
CPT/HCPCS: 76770

== ENCOUNTER 2018-12-04 17:21 | Outpatient (CLI) | payer MEDICAID | END 2018-12-04 17:22 | disposition home or self-care (01) | LOC: LAB 17:21 | PROVIDERS: ATTEND Physician Assistant Medical | DX: E27.8 Other specified disorders of adrenal gland (principal) | CPT/HCPCS: 81599; 82530 ==

== ENCOUNTER 2019-03-24 10:18 | Outpatient (CLI) | payer MEDICAID ==
[2019-03-24 18:20] LABS: ALBUMIN 4.3 g/dL (3.2-5.5); ALBUMIN/GLOBULIN RATIO 1.3 (1.0-2.2); BILIRUBIN,TOTAL 0.8 mg/dL (0.2-1.0); CALCIUM 9.4 mg/dL (8.5-10.3); CREATININE 0.6 mg/dL (0.4-1.0); TOTAL PROTEIN 7.6 g/dL (6.7-8.2)
== END 2019-03-24 10:19 | disposition home or self-care (01) ==
LOC: LAB.S 10:18
PROVIDERS: ATTEND Physician Assistant Medical
DX: I10 Essential (primary) hypertension (principal)
CPT/HCPCS: 36415; 80053

== ENCOUNTER 2019-04-20 10:36 | Outpatient (CLI) | payer MEDICAID ==
[2019-04-20 11:17] LABS: ALBUMIN 4.3 g/dL (3.2-5.5); ALBUMIN/GLOBULIN RATIO 1.2 (1.0-2.2); BILIRUBIN,TOTAL 0.9 mg/dL (0.2-1.0); CALCIUM 8.9 mg/dL (8.5-10.3); CREATININE 0.8 mg/dL (0.4-1.0); TOTAL PROTEIN 7.9 g/dL (6.7-8.2)
== END 2019-04-20 10:37 | disposition home or self-care (01) ==
LOC: LAB 10:36
PROVIDERS: ATTEND Physician Assistant Medical
DX: I10 Essential (primary) hypertension (principal)
CPT/HCPCS: 36415; 80053

== ENCOUNTER 2019-05-10 10:39 | Outpatient (CLI) | payer MEDICAID ==
[2019-05-10 11:25] LABS: CALCIUM 9.1 mg/dL (8.5-10.3); CREATININE 0.7 mg/dL (0.4-1.0)
[2019-05-10 13:52] LABS: HB2 TOTAL 13.9 g/dL; HEMOGLOBIN A1C 0.58 g/dL
== END 2019-05-10 10:40 | disposition home or self-care (01) ==
LOC: LAB 10:39
PROVIDERS: ATTEND Physician Assistant Medical
DX: R73.01 Impaired fasting glucose (principal)
CPT/HCPCS: 36415; 80048; 83036

== ENCOUNTER 2019-06-29 09:22 | Outpatient (CLI) | payer MEDICAID ==
--- NOTE | 2019-06-30 18:06 | Mammography Report ---
Reason: ROUTINE MAMMO Procedure Date: 06/29/2019 Accession Number: [id number] / [id number] Procedure: JOSH - Screening Mammo w/Albert CPT Code: Final Report FULL RESULT: EXAM: Screening Mammo w/Albert DATE: 06/29/2019 10:21 AM CLINICAL HISTORY: Routine screening. Grandmother with breast cancer. TECHNIQUE: (B) - Bilateral CC and MLO views were obtained. COMPARISON: 05/13/2018, 02/25/2017, 02/18/2017, 07/31/2015, 06/16/2013, 02/18/2012, 01/24/2011, 01/17/2011 and 11/14/2009 PARENCHYMAL PATTERN: (D) - The breasts demonstrate heterogeneously dense fibroglandular parenchyma bilaterally. FINDINGS: No significant interval change. There are no suspicious masses, calcifications, or areas of distortion. IMPRESSION: Negative examination. BI-RADS category 1. RECOMMENDATION: (ANNUAL) - Recommend routine annual screening mammography. BI-RADS CATEGORY: (1) - Negative. STANDARD QUALIFYING STATEMENTS: 1. This examination was not reviewed with the aid of Computer-Aided Detection (CAD). 2. A negative or benign imaging report should not preclude biopsy if clinically suspicious findings are present. 3. Dense breasts may obscure an underlying neoplasm. 4. This examination was reviewed with the aid of 3D breast imaging (tomosynthesis).
== END 2019-06-29 09:23 | disposition home or self-care (01) ==
LOC: DI 09:22
PROVIDERS: ATTEND Physician Assistant Medical
DX: Z12.31 Encounter for screening mammogram for malignant neoplasm of breast (principal); Z80.3 Family history of malignant neoplasm of breast
CPT/HCPCS: 77063; 77067

== ENCOUNTER 2019-07-21 10:12 | Outpatient (CLI) | payer MEDICAID ==
--- NOTE | 2019-07-27 11:23 | DEXA Report ---
Reason: POTSMENOPAUSAL Procedure Date: 07/21/2019 Accession Number: [id number] / [id number] Procedure: DEX - Dexa Spine and/or Hip CPT Code: Final Report FULL RESULT: EXAM: Dexa Spine and/or Hip DATE: 07/21/2019 10:52 AM CLINICAL HISTORY: POTSMENOPAUSAL TECHNIQUE: Dual energy x-ray absorptiometry (DXA) was performed on a [employer] System. Regions measured are the AP Spine, femoral neck, and if needed forearm. COMPARISON: None. In accordance with the International Society for Clinical Densitometry (ISCD) guidelines, data from previous exams may be reanalyzed using current recommendations and techniques. This is done to allow a more accurate basis for comparison with the current study. FINDINGS: The data for the lumbar spine is as follows: BMD (g/cm/cm) T-SCORE Z-SCORE REGION L1 1.197 0.6 1.1 L2 1.198 0.0 0.5 L3 1.354 1.3 1.8 L4 1.202 0.0 0.5 TOTAL 1.239 0.5 1.0 NOTE: All evaluable vertebrae are used for classification The data for the hip is as follows: BMD (g/cm/cm) T-SCORE Z-SCORE REGION Neck 0.890 -1.1 -0.3 TOTAL 0.954 -0.4 0.0 NOTE: The femoral neck or total proximal femur, whichever is lowest, is used for classification. IMPRESSION: THE WHO CLASSIFICATION BASED ON THE INTERNATIONAL REFERENCE STANDARD IS OSTEOPENIA. THE FRACTURE RISK IS INCREASED. RECOMMENDATION: Patients with diagnosis of osteoporosis or osteopenia should have regular bone mineral density assessment. For those eligible for Medicare, routine testing is allowed once every 2 years. Testing frequency can be increased for patients who have rapidly progressing disease or for those who are receiving medical therapy to restore bone mass. COMMENT: World Health Organization (WHO) definitions for osteoporosis and osteopenia: NORMAL BMD: T-score at -1.0 or higher, fracture risk is low OSTEOPENIA BMD: T-score between -1.0 and -2.5, fracture risk is increased. OSTEOPOROSIS BMD: T-score at -2.5 or lower, fracture risk is high. National Osteoporosis Foundation recommends: 1. Obtain adequate dietary calcium (at least 1200 mg per day) and vitamin D (400-800 international units per day). 2. Participate, as appropriate, in regular weightbearing and muscle-strengthening exercise. 3. Avoid tobacco use and reduce alcohol and caffeine intake. 4. For more detailed information see the website at www.NOF.org.
== END 2019-07-21 10:13 | disposition home or self-care (01) ==
LOC: DI 10:12
PROVIDERS: ATTEND Physician Assistant Medical
DX: M85.88 Other specified disorders of bone density and structure, other site (principal)
CPT/HCPCS: 77080

== ENCOUNTER 2019-10-15 09:15 | Outpatient (CLI) | payer MEDICAID ==
[2019-10-15 09:45] LABS: CHOL/HDL RATIO 3.8 (<4.4); CHOLESTEROL 230 mg/dL; HDL CHOLESTEROL 61 mg/dL; LDL CHOLESTEROL,CALCULATED 141 mg/dL; LDL/HDL RATIO 2.3 (<4.4); VLDL CHOLESTEROL 28 mg/dL
== END 2019-10-15 09:16 | disposition home or self-care (01) ==
LOC: LAB 09:15
PROVIDERS: ATTEND Physician Assistant
DX: Z00.00 Encounter for general adult medical examination without abnormal findings (principal); Z79.899 Other long term (current) drug therapy
CPT/HCPCS: 36415; 80061; 82306; 83721; 84132

== ENCOUNTER 2019-11-15 17:26 | Outpatient (CLI) | payer MEDICAID ==
[2019-11-15 19:56] LABS: BASOPHILS # (AUTO) 0.1 10^3/uL (0.0-0.1); BASOPHILS % (AUTO) 0.5 %; EOSINOPHILS # (AUTO) 0.2 10^3/uL (0.0-0.7); EOSINOPHILS % (AUTO) 1.7 %; HGB - HEMOGLOBIN 13.2 g/dL (12.0-16.0); LYMPHOCYTES # (AUTO) 2.7 10^3/uL (1.5-3.5); LYMPHOCYTES % (AUTO) 27.4 %; MEAN CORPUSCULAR HGB CONC 31.6 g/dL (32.0-36.0); MEAN CORPUSCULAR VOLUME 88.6 fL (81.0-99.0); MEAN PLATELET VOLUME 11.1 fL (7.9-10.8); MONOCYTES # (AUTO) 0.6 10^3/uL (0.0-1.0); MONOCYTES % (AUTO) 5.9 %; NEUTROPHILS # (AUTO) 6.4 10^3/uL (1.5-6.6); NEUTROPHILS % (AUTO) 64.1 %; PLT - PLATELET COUNT 317 10^3/uL (130-450); RED BLOOD COUNT 4.72 10^6/uL (4.20-5.40); RED CELL DISTRIBUTION WIDTH 13.2 % (12.0-15.0); WHITE BLOOD COUNT 9.9 x10^3/uL (4.8-10.8)
[2019-11-15 20:18] LABS: HB2 TOTAL 13.7 g/dL; HEMOGLOBIN A1C 0.59 g/dL; HEMOGLOBIN A1C % 6.1 % (4.6-6.2)
== END 2019-11-15 17:27 | disposition home or self-care (01) ==
LOC: LAB.S 17:26
PROVIDERS: ATTEND Physician Assistant
DX: R73.01 Impaired fasting glucose (principal); R53.83 Other fatigue; F32.9 Major depressive disorder, single episode, unspecified; Z79.899 Other long term (current) drug therapy
CPT/HCPCS: 36415; 83036; 84443; 85025

== ENCOUNTER 2020-01-15 12:00 | Outpatient (CLI) | payer MEDICAID ==
[2020-01-15 12:57] LABS: MAGNESIUM 1.9 mg/dL (1.7-2.8)
== END 2020-01-15 12:01 | disposition home or self-care (01) ==
LOC: LAB 12:00
PROVIDERS: ATTEND Physician Assistant
DX: Z79.899 Other long term (current) drug therapy (principal)
CPT/HCPCS: 36415; 83735; 84132

== ENCOUNTER 2020-01-25 08:00 | Outpatient (CLI) | payer MEDICAID ==
[2020-01-25 12:37] LABS: CALCIUM 8.9 mg/dL (8.5-10.3); CREATININE 0.6 mg/dL (0.4-1.0)
== END 2020-01-25 08:01 | disposition home or self-care (01) ==
LOC: LAB.WCP 08:00
PROVIDERS: ATTEND Physician Assistant
DX: E87.6 Hypokalemia (principal)
CPT/HCPCS: 36415; 80048

== ENCOUNTER 2020-02-19 08:52 | Outpatient (CLI) | payer MEDICAID ==
[2020-02-19 09:26] LABS: CALCIUM 8.8 mg/dL (8.5-10.3); CREATININE 0.9 mg/dL (0.4-1.0)
== END 2020-02-19 08:53 | disposition home or self-care (01) ==
LOC: LAB 08:52
PROVIDERS: ATTEND Physician Assistant
DX: E87.6 Hypokalemia (principal)
CPT/HCPCS: 36415; 80048

== ENCOUNTER 2020-03-10 09:00 | Outpatient (CLI) | payer MEDICAID ==
[2020-03-10 09:18] LABS: MAGNESIUM 2.1 mg/dL (1.7-2.8)
== END 2020-03-10 09:01 | disposition home or self-care (01) ==
LOC: LAB 09:00
PROVIDERS: ATTEND Physician Assistant
DX: E87.6 Hypokalemia (principal)
CPT/HCPCS: 36415; 83735; 84132

== ENCOUNTER 2020-07-01 08:08 | Outpatient (CLI) | payer MEDICAID ==
[2020-07-01 08:30] LABS: BASOPHILS # (AUTO) 0.1 10^3/uL (0.0-0.1); BASOPHILS % (AUTO) 0.6 %; EOSINOPHILS # (AUTO) 0.2 10^3/uL (0.0-0.7); EOSINOPHILS % (AUTO) 2.1 %; HGB - HEMOGLOBIN 13.9 g/dL (12.0-16.0); LYMPHOCYTES # (AUTO) 2.3 10^3/uL (1.5-3.5); LYMPHOCYTES % (AUTO) 29.4 %; MEAN CORPUSCULAR HEMOGLOBIN 29.3 pg (27.0-31.0); MEAN CORPUSCULAR HGB CONC 32.4 g/dL (32.0-36.0); MEAN CORPUSCULAR VOLUME 90.5 fL (81.0-99.0); MEAN PLATELET VOLUME 10.5 fL (7.9-10.8); MONOCYTES # (AUTO) 0.4 10^3/uL (0.0-1.0); MONOCYTES % (AUTO) 5.2 %; NEUTROPHILS # (AUTO) 4.8 10^3/uL (1.5-6.6); NEUTROPHILS % (AUTO) 62.3 %; PLT - PLATELET COUNT 281 10^3/uL (130-450); RED BLOOD COUNT 4.74 10^6/uL (4.20-5.40); RED CELL DISTRIBUTION WIDTH 12.7 % (12.0-15.0); WHITE BLOOD COUNT 7.8 x10^3/uL (4.8-10.8)
[2020-07-01 08:51] LABS: ALBUMIN/GLOBULIN RATIO 1.2 (1.0-2.2); BILIRUBIN,TOTAL 0.6 mg/dL (0.2-1.0); CALCIUM 9.2 mg/dL (8.5-10.3); CREATININE 0.7 mg/dL (0.4-1.0); TOTAL PROTEIN 7.4 g/dL (6.7-8.2)
== END 2020-07-01 08:09 | disposition home or self-care (01) ==
LOC: LAB 08:08
PROVIDERS: ATTEND Physician Assistant
DX: E78.5 Hyperlipidemia, unspecified (principal); I10 Essential (primary) hypertension; E87.6 Hypokalemia; Z79.899 Other long term (current) drug therapy; R53.83 Other fatigue; F32.9 Major depressive disorder, single episode, unspecified; E66.9 Obesity, unspecified
CPT/HCPCS: 36415; 80053; 83036; 84443; 85025

== ENCOUNTER 2020-09-13 14:08 | Outpatient (CLI) | payer MEDICAID ==
--- NOTE | 2020-09-14 11:13 | Mammography Report ---
BILATERAL DIGITAL SCREENING MAMMOGRAM 3D/2D: 09/13/2020 CLINICAL: Routine screening. Comparison is made to exams dated: 06/29/2019 mammogram, 05/13/2018 mammogram, 02/25/2017 mammogram, mammogram, and 07/31/2015 mammogram - [facility]. The tissue of both breasts is heterogeneously dense. This may lower the sensitivity of mammography. No significant masses, calcifications, or other findings are seen in either breast. There has been no significant interval change. IMPRESSION: NEGATIVE There is no mammographic evidence of malignancy. A 1 year screening mammogram is recommended. This exam was interpreted at Station ID: [id number]. NOTE: For mammograms, a report in lay terms will be sent to the patient. Approximately 15% of breast malignancies will not be visualized mammographically. In the management of a palpable breast mass, a negative mammogram must not discourage biopsy of a clinically suspicious lesion. Electronically Signed By: Dominic bond/jonathan:09/13/2020 14:53:54 ACR BI-RADS Category 1: Negative 3341F PARENCHYMAL PATTERN: (D) - The breast(s) demonstrate(s) heterogeneously dense fibroglandular malu fraser. BI-RADS CATEGORY: (1) - 1 RECOMMENDATION: (ANNUAL) - Recommend routine annual screening mammography. [id number] 1 year screening LATERALITY: (B)
== END 2020-09-13 14:09 | disposition home or self-care (01) ==
LOC: DI 14:08
DX: Z12.31 Encounter for screening mammogram for malignant neoplasm of breast (principal)